=== PATIENT | male | born 1950 | race Caucasian/White ===

== ENCOUNTER 2017-07-03 08:02 | Inpatient (IN) | payer MEDICARE, OTHER ==
--- NOTE | 2017-07-03 08:37 | ED PDOC ---
Arrival/HPI - General Time Seen by Provider: 07/03/17 08:06 Historian: Patient - History of Present Illness Narrative History of Present Illness (Text): 07/03/17 08:30 A 66 year old male, whose past medical history includes CHF and liver transplant , brought into the emergency department by EMS from cruise ship complaining of shortness of breath. 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 Patient denies any fever, chills, nausea, vomiting, abdominal pain, chest pain or any other complaints. 07/03/17 11:43 Time/Duration: Prior to Arrival Symptom Course: Improving Quality: Other Context: Home Past Medical History - Provider Review Nursing Documentation Reviewed: Yes Family/Social History - Physician Review Nursing Documentation Reviewed: Yes Family/Social History: No Known Family HX Allergies/Home Meds Allergies/Adverse Reactions: Allergies No Known Allergies Allergy (Unverified 07/03/17 08:36) Home Medications: Home Meds Medication Instructions Recorded Confirmed Aspirin [Adult Low Dose Aspirin EC] 81 mg PO DAILY 07/03/17 07/03/17 Atorvastatin [Lipitor] 20 mg PO HS 07/03/17 07/03/17 Bisacodyl [Dulcolax] 5 mg PO DAILY 07/03/17 07/03/17 Carvedilol [Coreg] 25 mg PO BID 07/03/17 07/03/17 Cyanocobalamin [Vitamin B12 100 300 mg PO DAILY 07/03/17 07/03/17 mcg Tab] Furosemide [Lasix] 40 mg PO BID 07/03/17 07/03/17 Gabapentin [Neurontin] 300 mg PO HS 07/03/17 07/03/17 Insulin Detemir [Levemir] 18 units SC HS 07/03/17 07/03/17 Insulin Lispro [Humalog (Insulin 100 unit SQ TID 07/03/17 07/03/17 Lispro)] Lisinopril [Zestril] 10 mg PO DAILY 07/03/17 07/03/17 Mv-Min/Folic/Vit K/Lycop/Coq10 1 each PO DAILY 07/03/17 07/03/17 [Daily Multivitamin Capsule] Mv-Mn/Iron/Folic Acid/Herb 190 1,000 unit PO DAILY 07/03/17 07/03/17 [Vitamin D3 Complete Caplet] Pyridoxine HCl (Vitamin B6) 100 mg PO DAILY 07/03/17 07/03/17 [Vitamin B-6] Tacrolimus [Prograf] 1 mg PO BID 07/03/17 07/03/17 Tamsulosin [Flomax] 0.4 mg PO HS 07/03/17 07/03/17 Review of Systems - Physician Review All systems were reviewed & negative as marked: Yes - Review of Systems Constitutional: absent: Fevers, Night Sweats Respiratory: SOB Cardiovascular: absent: Chest Pain Gastrointestinal: absent: Abdominal Pain, Nausea, Vomiting Physical Exam Vital Signs Reviewed: Yes Vital Signs Temp Pulse Resp BP Pulse Ox 07/03/17 10:56 62 19 127/62 95 07/03/17 10:54 127/62 07/03/17 08:46 19 96 07/03/17 08:37 98.0 F 62 18 133/64 96 Temperature: Afebrile Blood Pressure: Normal Pulse: Regular Respiratory Rate: Normal Appearance: Positive for: Well-Appearing, Non-Toxic, Comfortable Pain Distress: None Mental Status: Positive for: Alert and Oriented X 3 - Systems Exam Head: Present: Atraumatic, Normocephalic Pupils: Present: PERRL Extroacular Muscles: Present: EOMI Conjunctiva: Present: Normal Mouth: Present: Moist Mucous Membranes Neck: Present: Normal Range of Motion Respiratory/Chest: Present: Decreased Breath Sounds (bilaterally at bases). No : Respiratory Distress, Accessory Muscle Use Cardiovascular: Present: Regular Rate and Rhythm, Normal S1, S2. No: Murmurs Abdomen: Present: Normal Bowel Sounds. No: Tenderness, Distention, Peritoneal Signs Back: Present: Normal Inspection Upper Extremity: Present: Normal Inspection. No: Cyanosis, Edema Lower Extremity: Present: Normal Inspection. No: Edema Neurological: Present: GCS=15, CN II-XII Intact, Speech Normal Skin: Present: Warm, Dry, Normal Color. No: Rashes Psychiatric: Present: Alert, Oriented x 3, Normal Insight, Normal Concentration Medical Decision Making ED Course and Treatment: 07/03/17 08:30 Impression: A 66 year old male with shortness of breath. No chest pain. Plan: -- Chest xray -- EKG -- Labs -- Urinalysis -- Reassess and disposition Progress Notes: EKG shows NSR at 63 BPM with non-specific ST/T wave changes, no prior EKG for comparison. Interpreted by me. Report Date : 07/03/2017 09:07:26 Procedure: Chest xray Dictator : Randall Hewitt MD IMPRESSION: Bibasilar opacity, left greater than right. Possible small left pleural effusion. Rule out pneumonia. - Lab Interpretations Lab Results: 07/03/17 08:50 07/03/17 08:50 Lab Results 07/03/17 09:01: POC Glucose (mg/dL) 94 07/03/17 08:50: Sodium 142, Potassium 4.7, Chloride 106, Carbon Dioxide 26, Anion Gap 15, BUN 51 H, Creatinine 1.5, Est GFR ( Amer) 56, Est GFR (Non- Af Amer) 47, Random Glucose 94, Calcium 9.6, Magnesium 1.9, Total Bilirubin 0.6 , AST 26, ALT 30, Alkaline Phosphatase 87, Lactate Dehydrogenase 530, Total Creatine Kinase 59, Troponin I 0.03, NT-Pro-B Natriuret Pep 59338 H, Total Protein 7.1, Albumin 4.0, Globulin 3.1, Albumin/Globulin Ratio 1.3 07/03/17 08:50: PT 11.0, INR 1.02, APTT 28.7 07/03/17 08:50: WBC 6.3, RBC 3.73, Hgb 10.5 L, Hct 32.4 L, MCV 86.9, MCH 28.2, MCHC 32.4, RDW 16.1 H, Plt Count 278, MPV 10.3, Gran % 60.2, Lymph % (Auto) 25.0 , [place] % (Auto) 9.3 H, Eos % (Auto) 4.6, Baso % (Auto) 0.9, Gran # 3.80, Lymph # 1.6, [place] # 0.6, Eos # 0.3, Baso # 0.06 I have reviewed the lab results: Yes - RAD Interpretation Radiology Orders: 07/03/17 08:26 CHEST PORTABLE [RAD] Stat - Medication Orders Current Medication Orders: Aspirin (Ecotrin) 81 mg PO DAILY CONSTANTINO Atorvastatin Calcium (Lipitor) 20 mg PO HS [facility] Carvedilol (Coreg) 25 mg PO BID [facility] Furosemide (Lasix) 40 mg IVP DAILY [facility] Gabapentin (Neurontin) 300 mg PO HS [facility] PRN Reason: Protocol Levofloxacin/Dextrose (Levaquin 750mg) 750 mg in 150 mls @ 100 mls/hr IVPB DAILY [facility] Insulin Detemir (Levemir) 18 unit SC HS [facility] Lisinopril (Zestril) 10 mg PO DAILY [facility] Non-Formulary Medication (Insulin Lispro [Humalog (Insulin Lispro)]) 100 unit SQ TID [facility] Non-Formulary Medication (Mv-Min/Folic/Vit K/Lycop/Coq10 [Daily Multivitamin Capsule]) 1 each PO DAILY [facility]INO Non-Formulary Medication (Mv-Mn/Iron/Folic Acid/Herb 190 [Vitamin D3 Complete Caplet]) 1,000 unit PO DAILY [facility] Pyridoxine HCl (Vitamin B6 50 Mg Tab) 100 mg PO DAILY [facility] Tacrolimus (Prograf Cap) 1 mg PO BID CONST[facility]INO Tamsulosin HCl (Flomax) 0.4 mg PO HS CONSTANTINO Discontinued Medications Furosemide (Lasix) 60 mg IVP STAT STA Stop: 07/03/17 09:20 Last Admin: 07/03/17 10:54 Dose: 60 mg MAR Blood Pressure Document 07/03/17 10:54 MR (Rec: 07/03/17 10:54 MR [id number]) Blood Pressure Blood Pressure (100/60-150/90) 127/62 IVP Administration Document 07/03/17 10:54 MR (Rec: 07/03/17 10:54 MR [id number]) Charges for Administration # of IVP Administrations 1 Levofloxacin/Dextrose (Levaquin 750mg) 750 mg in 150 mls @ 100 mls/hr IVPB STAT STA Stop: 07/03/17 10:41 Last Admin: 07/03/17 10:53 Dose: 100 mls/hr eMAR Start Stop Document 07/03/17 10:53 MR (Rec: 07/03/17 10:54 MR [id number]) Intravenous Solution Start Date 07/03/17 Start Time 10:53 End Date 07/03/17 End time 12:23 Total Infusion Time 90 - Scribe Statement The provider has reviewed the documentation as recorded by the Scribe Adelaida Nash Provider Scribe Attestation: All medical record entries made by the Scribe were at my direction and personally dictated by me. I have reviewed the chart and agree that the record accurately reflects my personal performance of the history, physical exam, medical decision making, and the department course for this patient. I have also personally directed, reviewed, and agree with the discharge instructions and disposition. Disposition/Present on Arrival - Present on Arrival Any Indicators Present on Arrival: No - Disposition Have Diagnosis and Disposition been Completed?: Yes Diagnosis: CHF (congestive heart failure) Disposition: HOSPITALIZED Disposition Time: 11:43 Condition: STABLE
[2017-07-03 08:40] VITALS: BMI 23.6
[2017-07-03 09:01] LABS: BASO # 0.06 K/mm3 (0.0-2.0); BASO % 0.9 % (0.0-3.0); EOS # 0.3 (0.0-0.7); EOS % 4.6 % (1.5-5.0); GRAN # 3.8 (1.4-6.5); GRAN % 60.2 % (50.0-68.0); HEMATOCRIT 32.4 % (42.0-52.0); LYMPH # 1.6 (1.2-3.4); MEAN CELL VOLUME 86.9 fl (80.0-105.0); MEAN CORPUSCULAR HEMOGLOBIN 28.2 pg (25.0-35.0); MEAN CORPUSCULAR HGB CONC 32.4 g/dl (31.0-37.0); MEAN PLATELET VOLUME 10.3 fl (7.0-11.0); MONO # 0.6 (0.1-0.6); MONO % 9.3 % (1.0-6.0); RED CELL DISTRIBUTION WIDTH 16.1 % (11.5-14.5); WHITE BLOOD COUNT 6.3 10^3/ul (4.5-11.0)
[2017-07-03 09:06] LABS: ALB/GLOB RATIO 1.3 (1.1-1.8); BILIRUBIN,TOTAL 0.6 mg/dL (0.2-1.3); CALCIUM 9.6 mg/dL (8.4-10.5); MAGNESIUM 1.9 mg/dL (1.7-2.2); POTASSIUM 4.7 mmol/L (3.6-5.0); TOTAL PROTEIN 7.1 g/dL (5.8-8.3)
--- NOTE | 2017-07-03 09:09 | RAD ---
HISTORY: sob COMPARISON: No prior. FINDINGS: LUNGS: Bibasilar ill-defined opacity, left greater than right. Possible pneumonia. PLEURA: Blunting of left costophrenic angle may reflect small pleural effusion. No evidence of right pleural effusion. No pneumothorax. CARDIOVASCULAR: No significant congestive change. Normal heart size. OSSEOUS STRUCTURES: No significant abnormalities. VISUALIZED UPPER ABDOMEN: Normal. OTHER FINDINGS: None. IMPRESSION: Bibasilar opacity, left greater than right. Possible small left pleural effusion. Rule out pneumonia.
[2017-07-03 09:10] LABS: INR 1.02 (0.93-1.08); PARTIAL THROMBOPLASTIN TIME 28.7 Seconds (23.7-30.8)
[2017-07-03] MEDS ORDERED: levoFLOXacin 750 mg in D5W 750 MG/150 ML BAG IVPB STA (09:12)
[2017-07-03 09:18] LABS: TROPONIN I 0.03 ng/mL
[2017-07-03 10:59] VITALS: O2SAT 95
--- NOTE | 2017-07-03 11:19 | CARD ---
APPROVED REPORT EKG Measurement Heart [id number] <Conclusion> Normal sinus rhythm Cannot rule out Old Ant.Wall Infarct.
[2017-07-03] MEDS ORDERED: Pneumococcal 23-Valent Vaccine IM ONE (13:01)
[2017-07-03] MEDS ORDERED: INSULIN LISPRO 100 UNIT SQ SCH (14:00)
--- NOTE | 2017-07-03 14:27 | CON ---
PULMONARY CONSULTATION DATE: 07/03/2017 REASON FOR CONSULTATION: Rule out pneumonia. REFERRING PHYSICIAN: Jose Wolff DO HISTORY OF PRESENT ILLNESS: History is obtained via extensive discussion with Dr. Maldonado (emergency room). I have also discussed the case with the patient and at length. This patient is a 66-year-old male, with past medical history significant for congestive heart failure, coronary artery disease, status post multiple cardiac stents, liver transplant, hypertension, who presents to [facility] - from the cruise ship- with a 2-day history of worsening shortness of breath at rest and dyspnea on exertion. There is no history of cough or sputum production. There is no history of chest pain, coughing up of blood, or chest pain - made worse with deep respirations. There is no history of temperatures, chills or infectious exposure. There is no history of night sweats, weight loss or appetite change prior to the above events. No history of leg or calf pains. No history of syncope or diaphoresis. No history of recent trauma. REVIEW OF SYSTEMS: No history of nausea, vomiting or diarrhea. No acute urinary symptoms. No new neurologic or musculoskeletal complaints. Rest of the review of systems is negative. ALLERGIES: NO KNOWN ALLERGIES. SOCIAL HISTORY: Positive for tobacco(stopped 20 years ago) and negative for alcohol. FAMILY HISTORY: No inheritable diseases or medications include Flomax, MEDS:include Prograf, vitamins, insulin, Levemir, Neurontin, Lasix, Coreg, Lipitor and aspirin. PHYSICAL EXAMINATION: GENERAL: The patient is not short of breath at rest. He is not using accessory muscles for breathing. VITALS: Temperature is 98.0, pulse 62, respirations 19, blood pressure 133/64. Oxygen saturation on nasal cannula is 96%. HEENT: Normocephalic and atraumatic. Positive JVD. CARDIOVASCULAR: Systolic ejection murmur at the lower left sternal border. Positive S3 gallop. LUNGS: Decreased breath sounds with crackles at both bases. No rhonchi. No wheezing. EXTREMITIES: The patient is status post left [id number] amputation. The right lower extremity shows mild edema. There is no cyanosis or clubbing in the right lower extremity. The right calf is nontender to palpation. GI: Abdomen is soft, nontender and nondistended. Bowel sounds are positive. SKIN: No acute rash. NEUROLOGIC: Limited at the present time. LABORATORY DATA: Chest x-ray was done and reviewed. There is moderate pulmonary edema noted. There is also a questionable small patchy infiltrate noted in the right lower lobe. CBC: White count 6.3, hemoglobin 10.5, hematocrit 32.4, platelets of 278. Complete metabolic profile: BUN 51, troponin 0.03. B-type nature peptide 10,400. Rest of the metabolic profiles within normal limits. IMPRESSION: 1. Acute congestive heart failure. 2. Coronary artery disease. 3. Rule out pneumonia - right lower lobe. 4. Mild anemia. 5. Possible COPD PLAN: Again, I did discuss the case with the patient and at length. I have also discussed the case with the emergency room physician at length. The patient presents to [facility] with a 2-day history of worsening shortness of breath at rest and dyspnea on exertion. There are no other pulmonary symptoms reported. I did review the chest x-ray as above. The chest x-ray is most consistent with congestive heart failure. There may also be a small underlying patchy infiltrate noted in the right lower lobe, but it is certainly not extensive. I have also reviewed the laboratory data. A significant rise in the B-type nature peptide is noted. On the cruise ship, the patient was started on Tridal and Lasix, with a significant reduction in his pulmonary symptoms. There is no history of temperatures. There is no leukocytosis. The patient was given a dose of Levaquin in the emergency room. A stat procalcitonin has also been ordered - to try and discern whether we are dealing with an underlying pneumonia or not. Cardiology evaluation with Dr. Bethea has also been ordered. Again, the patient improved significantly with treatment for his heart failure - while on the cruise ship. Additional pulmonary intervention will be based on the above results, as well as the clinical status of the patient. I will discuss the above with the attending physician. Thank you very much for this pulmonary consultation. Nilay Lazo MD JORGE
--- NOTE | 2017-07-03 20:19 | HP ---
HISTORY OF PRESENT ILLNESS: I was called down to the emergency room to see this young man. He came off the cruise ship. He had shortness of breath. He was given treatments on the cruise ship. He also got Lasix 60 IV in the ER. He is starting to breathe a little bit better. He has got a big medical history: CHF, liver transplant. He has a left BKA. He was very uncomfortable when he came in to the ER. He is doing better now after the diuresing. He is with his family. He will be put on telemetry. ALLERGIES: NO KNOWN DRUG ALLERGIES. MEDICATIONS: His medication list are many: Dulcolax, Lasix, B12, low-dose aspirin, Coreg, multivitamin, Flomax. He is a diabetic. He is on Lispro, Levemir. He is also on Lipitor, Neurontin, Prograf, vitamin B6 with vitamin D3 complex, lisinopril. FAMILY HISTORY: There is no known family history. REVIEW OF SYSTEMS: No apparent fevers or sweats. No changes in vision or hearing. No sore throat. No chest pain or palpitation. There was shortness of breath and coughing. No abdominal pain, nausea, vomiting. No pain. No numbness or tingling. PHYSICAL EXAMINATION: GENERAL: Presently, he is comfortable on the gurney in the ER. VITAL SIGNS: He has 98 temperature, 62 pulse, 18 respiratory rate, 133/64 blood pressure, 96% O2 saturation on oxygen. HEENT: His head is atraumatic and normocephalic. He is well-appearing comfortable at this time, status post Lasix given IV. Alert and oriented. Extraocular muscles intact. Throat is moist. NECK: Supple. No JVD. HEART: Regular rate. Normal S1 and S2. LUNGS: Decreased breath sounds bilaterally. Fair inspiration. No congestion. No rales, rhonchi, or wheezes. ABDOMEN: Soft and nontender. Positive bowel sounds. No guarding. No rebound. No CVA tenderness. EXTREMITIES: Have no edema. He has had a left BKA. NEUROLOGICAL: GCS is 15. Cranial nerves II through XII grossly intact. SKIN: Warm and dry. No apparent ulcers or rashes appreciated. LYMPH: Thyroid midline. No appreciable lymphadenopathy that I can palpate. LABORATORY DATA: He had a chest x-ray that says bibasilar opacity left greater than right, possible small left pleural effusion, rule out pneumonia. An EKG which says normal sinus rhythm, cannot rule out anterior infarct. IMPRESSION AND PLAN: He will have consults with Pulmonary and Cardio. He will be on Levaquin IV. He will be on his medications plus Lasix 40 IV daily. He will have physical therapy ordered, oxygen. Hopefully, he will improve. We will check his labs tomorrow. Jose Wolff DO
[2017-07-03 20:25] LABS: PH,URINE 6.5 (4.7-8.0); URINE BILIRUBIN NEGATIVE (NEGATIVE); URINE BLOOD TRACE-INTACT (NEGATIVE); URINE GLUCOSE (UA) NEGATIVE (NEGATIVE); URINE KETONE NEGATIVE (NEGATIVE); URINE LEUKOCYTE ESTERASE NEGATIVE Leu/uL (NEGATIVE); URINE PROTEIN 100 mg/dL (<30 mg/dL); URINE UROBILINOGEN 0.2 E.U./dL (<1 E.U./dL)
[2017-07-03 20:26] LABS: URINE COLOR YELLOW (YELLOW)
[2017-07-03 20:27] LABS: URINE APPEARANCE CLEAR (CLEAR)
[2017-07-03 20:35] LABS: URINE RBC 0 - 2 /hpf (0-2); URINE WBC NEGATIVE /hpf (0-6)
[2017-07-03] MEDS ORDERED: Insulin Detemir 100 units/ml Vial (Levemir) SC SCH (22:00)
--- NOTE | 2017-07-04 02:40 | CON ---
CARDIOLOGY CONSULTATION DATE: 07/03/2017 HISTORY OF PRESENT ILLNESS: The patient is a 66-year-old male who was on a cruise ship who developed substernal angina at rest followed by florid CHF. PAST MEDICAL HISTORY: The patient's past medical history includes history of diabetes mellitus, COPD, hypertension, history of PTCA and stent in the past, hypercholesterolemia as well as severe peripheral vascular disease, resulting in an amputation in the left lower extremity. Currently, his breathing is better. He denies chest pain at this time. SOCIAL HISTORY: He is a former heavy smoker. REVIEW OF SYSTEMS: A 14-point review of systems was reviewed in detail. No additional symptoms are noted. PHYSICAL EXAMINATION: VITAL SIGNS: Blood pressure is 127/62 and heart rate in the 60s. NECK: Negative JVD. LUNGS: Crackles at the bases. HEART: Reveal S1 and S2. EXTREMITIES: Status post amputation of the left lower extremity. DIAGNOSTIC DATA: EKG shows normal sinus rhythm with nonspecific ST-T changes. The ProBNP is greater than 10,000. The troponin is negative x1. BUN and creatinine is 51 and 1.5. Hemoglobin is 10.5 with a white count of 6.3. IMPRESSION: 1. Florid congestive heart failure. 2. Severe chronic obstructive pulmonary disease. 3. Coronary artery disease. 4. History of percutaneous transluminal coronary angioplasty and stent in the past. 5. Diabetes mellitus. 6. Unstable angina. 7. Peripheral vascular disease. 8. Status post amputation of the left lower extremity. 9. Prerenal azotemia. PLAN: Given these findings, we will add Plavix to his regimen. We will hold off his Lasix. Given these findings of recurrent angina and florid CHF, I have discussed with the patient and family about cardiac catheterization in the morning. They are agreeable. We will arrange for first thing in the morning. Randall Bethea MD
[2017-07-04 05:58] LABS: HEMATOCRIT 28.4 % (42.0-52.0); MEAN CELL VOLUME 87.4 fl (80.0-105.0); MEAN PLATELET VOLUME 10.1 fl (7.0-11.0); RED CELL DISTRIBUTION WIDTH 16.3 % (11.5-14.5); WHITE BLOOD COUNT 5.9 10^3/ul (4.5-11.0)
[2017-07-04 06:17] LABS: ALB/GLOB RATIO 1.2 (1.1-1.8); BILIRUBIN,TOTAL 0.6 mg/dL (0.2-1.3); POTASSIUM 4.2 mmol/L (3.6-5.0); TOTAL PROTEIN 6.1 g/dL (5.8-8.3)
[2017-07-04 06:32] LABS: CALCIUM 8.9 mg/dL (8.4-10.5)
[2017-07-04] MEDS ORDERED: Phenylephrine 10 mg/ml Inj ONE (06:56)
[2017-07-04] MEDS ORDERED: Lidocaine 2% Inj (20ml) ONE (06:56)
[2017-07-04] MEDS ORDERED: Iohexol 350mgl/ml 50 ML ONE (06:56)
[2017-07-04] MEDS ORDERED: Iodixanol 320 MG/ML 200 ML BOTTLE IV ONE (06:57)
[2017-07-04] MEDS ORDERED: Iodixanol 320 MG/ML 100 ML BOTTLE IV ONE (06:57)
[2017-07-04] MEDS ORDERED: Nitroglycerin 50mg in D5W 50 MG/250 ML BOTTLE IV ONE (06:57)
[2017-07-04] MEDS ORDERED: Midazolam 2 MG/2 ML VIAL ONE ×2 (07:04→07:49)
[2017-07-04] MEDS: Insulin Lispro (HUMAlog) HIGH Coverage SC SCH ×4 (07:38→21:33)
--- NOTE | 2017-07-04 07:39 | PN ---
SUBJECTIVE: The patient appears much more comfortable this morning. He is not short of breath at rest. PHYSICAL EXAMINATION: Vital Signs: Temperature is 98.0, pulse is 70, respirations 18-20, blood pressure 138/59. Oxygen saturation on room air is 95%. HEENT: Normocephalic, atraumatic. NECK: Positive JVD. CARDIOVASCULAR: Systolic ejection murmur at the lower left sternal border. Positive S3 gallop. LUNGS: Better breath sounds with less crackles at the bases. No rhonchi. No wheezing. EXTREMITIES: The patient is status post left [id number]-[id number] amputation. The right lower extremity shows less edema. There is no cyanosis or clubbing in the right lower extremity. The right calf is nontender to palpation. GASTROINTESTINAL: Abdomen is soft, nontender and nondistended. Bowel sounds are positive. SKIN: No acute rash. NEUROLOGIC: Limited at the present time. PERTINENT LABORATORY DATA: CBC: White count 5.9, hemoglobin 9.1, hematocrit 28.4, platelets of 249. Complete metabolic profile: BUN 51, creatinine 1.6. Rest of the metabolic profile is within normal limits. Procalcitonin was done yesterday and is negative-0.11. IMPRESSION: 1. Acute congestive heart failure. 2. Coronary artery disease. 3. Rule out pneumonia-right lower lobe-less likely. 4. Mild anemia. 5. Possible chronic obstructive pulmonary disease. PLAN: The patient appears much more comfortable this morning. He is not short of breath at rest. He states he is feeling much better overall. On physical exam, there is no significant bronchospasm noted. In addition, the oxygen saturation on room air is now 95%. I would continue with the treatment for congestive heart failure as per Cardiology. Input by Dr. Bethea is noted. The patient is for probable cardiac catheterization later today. The patient remains on antibiotic therapy. There are no temperatures noted. There is no leukocytosis. Given the negative procalcitonin, we could certainly shorten the course of antibiotic treatment. I did discuss the patient's smoking history again with him at length this morning. He did smoke for a number of years, but has not smoked for 20 years. When stable, I would like to obtain a pulmonary function test. The patient has never been on any pulmonary medications before. Clinical status of this patient is significantly improved-compared to yesterday. I will discuss the above with Dr. Wolff. Nilay Lazo MD MTDHumphrey
[2017-07-04] MEDS ORDERED: Sodium Chloride 0.9% 1,000 ML IV SCH (09:15)
[2017-07-04] MEDS ORDERED: IRON PO SCH (10:00)
[2017-07-04] MEDS ORDERED: [UNRECOGNIZED DRUG - OTHER] PO SCH (10:00)
[2017-07-04] MEDS ORDERED: VIT K PO SCH (10:00)
[2017-07-04] MEDS ORDERED: [UNRECOGNIZED DRUG - OTHER] PO SCH (10:00)
[2017-07-04] MEDS ORDERED: FOLIC ACID PO SCH (10:00)
[2017-07-04] MEDS ORDERED: levoFLOXacin 750 mg in D5W 750 MG/150 ML BAG IVPB SCH (10:00)
[2017-07-04] MEDS ORDERED: LYCOP PO SCH (10:00)
[2017-07-04] MEDS ORDERED: MV MIN PO SCH (10:00)
[2017-07-04] MEDS ORDERED: FOLIC PO SCH (10:00)
[2017-07-04] MEDS ORDERED: COQ10 PO SCH (10:00)
[2017-07-04] MEDS ORDERED: HERB PO SCH (10:00)
[2017-07-04] MEDS ORDERED: MV MN PO SCH (10:00)
--- NOTE | 2017-07-04 12:48 | CARD ---
APPROVED REPORT EKG Measurement Heart [id number] <Conclusion> Normal sinus rhythm Anterior infarct, age Old. Abnormal ECG
--- NOTE | 2017-07-04 13:16 | PQF CHF ---
This form is a permanent part of the medical record Dr. Wolff, Please provide specificity about type and severity of CHF present in this patient. Clarification of your documentation is requested to better reflect the severity of illness and intensity of treatment of your patient. Indicators present [] Diagnosis of CHF and/or history of CHF [] BNP > 200 [] Imaging Finding of Pulmonary Edema /Pleural Effusions [] Fluid/Volume Overload [] Pitting edema [] Ejection Fraction < 40% (Indicative of Systolic Heart Failure) [] Ejection Fraction > 40% (Indicative of Diastolic Heart Failure) [] Dyspnea / Orthopenea / Paroxysmal Nocturnal Dyspnea [] Other: Location in the medical record that reflects the above clinical findings: [] Treatment Provided: [] PHYSICIAN'S RESPONSE PER CARDIOLOGY CONSULT Based on your medical judgment of the clinical indicators outlined above, are you treating this patient for a known or suspected: [] Acute CHF [] Systolic [] Diastolic [] Combined [] Chronic CHF [] Systolic [] Diastolic [] Combined [] Acute on Chronic CHF []Systolic [] Diastolic [] Combined [] CHF due hypertension [] Acute systolic []Chronic systolic [] Acute/ chronic systolic [] Other, please indicate: [] [] If Unable to Determine, please check the box, sign and date. Present On Admission (POA) Indicator: [] Present at the time of admission [] Not present at the time of admission [] Clinically Undetermined In responding to this query, please exercise your independent professional judgment. The fact that a question is asked does not imply that any particular answer is desired or expected. Thank you for your clarification on this documentation. If you have any questions please call:[ ] * Thank you, [ ]Irene Martinez [facility] #[id number] log loader helper JORGE
--- NOTE | 2017-07-04 16:53 | CARDCATH ---
CARDIAC CATHETERIZATION AND PTCA PROCEDURE DATE: 07/04/2017 HISTORY: The patient is a 66-year-old male who presents with unstable angina and CHF [place] cruise ship. His past medical history includes a PTCA and stent remotely as well as history of severe peripheral vascular disease. He suffers from diabetes mellitus and he is a former heavy smoker. He suffers from COPD. Because of this, a cardiac catheterization was recommended. PROCEDURE: Left heart catheterization with coronary , left ventriculogram, supra-aortic valvular injection as well as percutaneous transluminal coronary angioplasty and stent of an left anterior descending. The right femoral artery was cannulated with a 6-Finnish sheath. There were no complications. . FINDINGS ON CATHETERIZATION: Revealed a left ventricle that was mildly hypokinetic. Estimated ejection fraction between 40% and 45%. There was no mitral regurgitation. Supra-aortic valvular injection revealed no aortic insufficiency. His coronary anatomy revealed a right dominant circulation. The RCA revealed diffuse atherosclerosis throughout its course with multiple 50% to 60% lesions in the proximal and midportion. The distal portion of the RCA was occluded, which appears chronic. The left main artery was a narrow vessel, but was free of significant disease. The LAD and diagonal vessels revealed diffuse atherosclerosis with multiple 50% lesions throughout its course. In the midportion of the LAD at the previously placed stent site, there is a 99% stenosis noted. The diagonal vessels revealed diffuse atherosclerosis. The circumflex artery and obtuse marginal branches revealed diffuse atherosclerosis with multiple 40% to 50% lesions throughout its course. The patient was started on intravenous Angiomax. On the fluoroscopic guide, the guiding catheter was placed in the ostium of the left main artery. An 0.014 ATW wire was used to cross the critical lesion. A 2.0 balloon was used to dilate the long segment of the subtotal occlusion in the mid LAD. Two 2.25 x 20 mm drug-eluting stents were placed and deployed in the midportion of the LAD at 12 to 14 atmospheres of pressure. After balloon deflation and removal, repeat coronary revealed an excellent result with no residual stenosis and SHERIN-III flow. Angio-Seal was used to close the femoral artery site. The patient tolerated the procedure well. In summary, the procedure was successful PTCA and stent of a subtotally occluded LAD that was a long lesion in a diffusely diseased artery. Drug-eluting stents were used. Cardiac catheterization revealed mild LV hypokinesis with an EF of 40%. His coronary tree revealed diffuse atherosclerosis with multiple 50% lesions throughout all vessels as well as a chronically occluded distal RCA. Given these findings, the patient will need to remain on aspirin indefinitely and Plavix for at least a year. If the patient is stable, the patient can be discharged in the morning and referred back to his diesel motor mechanic down in [facility]. I have discussed this with his diesel motor mechanic and he is aware of the patient's clinical course. Randall Bethea MD
[2017-07-04] MEDS ORDERED: [UNRECOGNIZED DRUG - OTHER] PO SCH (20:17)
[2017-07-05 08:39] LABS: BASO # 0.03 K/mm3 (0.0-2.0); BASO % 0.4 % (0.0-3.0); EOS # 0.3 (0.0-0.7); EOS % 3.8 % (1.5-5.0); GRAN # 4.93 (1.4-6.5); HEMATOCRIT 29.3 % (42.0-52.0); LYMPH # 1.2 (1.2-3.4); MEAN CELL VOLUME 87.5 fl (80.0-105.0); MEAN CORPUSCULAR HEMOGLOBIN 28.1 pg (25.0-35.0); MEAN CORPUSCULAR HGB CONC 32.1 g/dl (31.0-37.0); MEAN PLATELET VOLUME 9.8 fl (7.0-11.0); MONO # 0.6 (0.1-0.6); MONO % 8.8 % (1.0-6.0); RED CELL DISTRIBUTION WIDTH 15.9 % (11.5-14.5); WHITE BLOOD COUNT 7.1 10^3/ul (4.5-11.0)
[2017-07-05] MEDS: Insulin Lispro (HUMAlog) HIGH Coverage SC SCH ×2 (08:39→13:17)
[2017-07-05 08:48] LABS: ALB/GLOB RATIO 1.2 (1.1-1.8); BILIRUBIN,TOTAL 0.6 mg/dL (0.2-1.3); CALCIUM 9.4 mg/dL (8.4-10.5); POTASSIUM 4.5 mmol/L (3.6-5.0); TOTAL PROTEIN 6.4 g/dL (5.8-8.3)
--- NOTE | 2017-07-05 10:37 | DS ---
SUBJECTIVE: He is resting comfortably in bed. He ate all his breakfast. He has no chest pain, no shortness of breath. He is status post cardiac cath and stent placement. PHYSICAL EXAMINATION: VITAL SIGNS: He has a 98.9 temp, 72 pulse, 150/69 blood pressure, and 18 respiratory rate. HEENT: Head is atraumatic, normocephalic. Throat is moist. NECK: Supple. HEART: Regular rate. LUNGS: Clear to auscultation. ABDOMEN: Soft. EXTREMITIES: No edema. Left BKA. LABORATORY DATA: He has a 7.1 white count, 9.4 hemoglobin, 29.3 hematocrit with a 243 platelets. He has a 141 sodium, potassium is 4.5, BUN is 43, creatinine is 1.6 which is better. He has a 43 GFR. He has got a 141 sugar, calcium is 9.4, total bili is 0.6, AST is 19, ALT is 37, alk phos 79, total protein is 6.4. ASSESSMENT AND PLAN: He is being seen by cardiology and pulmonology. Overall, he did very well here. He is going to go home on his vitamins, Coreg, Ecotrin, Flomax, Levemir, Lipitor, multivitamin, Neurontin, Plavix, Prograf, Tylenol, vitamin B6 and Zestril. He will follow up with his primary care doctor his coronary artery disease, congestive heart failure and the stent. Jose Wolff DO
--- NOTE | 2017-07-05 13:18 | PN ---
REASON FOR DICTATION: Covering Dr. Randall Bethea. REASON FOR CONSULTATION: Coronary artery disease, status post PTCA, status post pulmonary edema. SUBJECTIVE: The patient denies any chest pain, shortness of breath, any palpitation. OBJECTIVE: GENERAL: Sitting in the chair, in the process of being discharged. VITAL SIGNS: Temperature afebrile, heart rate 75, blood pressure 150/60. HEENT: PERRLA, intact. NECK: Supple. No carotid bruit or thyromegaly. CHEST: Clear to auscultation. HEART: S1 and S2 regular. ABDOMEN: Soft. EXTREMITIES: Clubbing and cyanosis negative. LABORATORY DATA: WBC 7.9, hemoglobin 9.4, hematocrit of 29.3, and platelet count 243. Sodium 141, potassium 4.5, chloride 105, carbon dioxide 23, anion gap of 15, BUN of 43, and creatinine of 1.6. IMPRESSION: A 66-year-old male with past medical history significant for coronary artery disease, status post percutaneous transluminal coronary angioplasty of left anterior descending, by Dr. Bethea; diabetes; hypertension; hyperlipidemia; unstable angina; congestive heart failure; history of amputation. RECOMMENDATIONS: Continue aspirin and Plavix. Okay to discharge, baseline patient's renal insufficiency, monitor electrolytes as outpatient. We will follow with you. I discussed in length with the patient about the mandatory to continue aspirin and Plavix. We will follow with you and upon discharge, the patient will be followed with Dr. Bethea as outpatient. are made to the patient to followup visit with Dr. Bethea. Yolande Gutierrez MD
[2017-07-05 13:53] VITALS: BP 125/59; PULSE 64; RESP 20; TEMP 99
--- NOTE | 2017-07-05 14:21 | CARD ---
APPROVED REPORT EKG Measurement Heart [id number] VT [id number] [id number] <Conclusion> Normal sinus rhythm Cannot rule out Inferior infarct, age undetermined Anterior infarct, age undetermined Abnormal ECG
--- NOTE | 2017-07-07 09:53 | PN ---
DATE: 07/04/2017 SUBJECTIVE: I saw him resting comfortably in bed. He is status post coronary cath with Dr. Randall Bethea, the sprayer leather. He had a stent placed. He is comfortable, lying flat in bed, alert and talking. MEDICATIONS: He is on Coreg, Ecotrin, Flomax, insulin, Lasix, Levaquin, Levemir, Lipitor, Motrin, multivitamins, Neurontin, Plavix, Prograf, IV fluids, vitamin B6, and Zestril. PHYSICAL EXAMINATION: GENERAL: Alert and talking. VITAL SIGNS: He has temperature of 98, pulse of 70, blood pressure of 134/64, respiratory rate of 20, and 95% O2 saturation on room air. HEENT: Head is atraumatic and normocephalic. Throat is moist. NECK: Supple. HEART: Regular rate. LUNGS: Decreased breath sounds. Clear to auscultation. Poor inspiration, but clear. ABDOMEN: Soft, nontender, and positive bowel sounds. No guarding. No rebound. No CVA tenderness. EXTREMITIES: No edema. He does have left BKA. ASSESSMENT AND PLAN: He has been treated for congestive heart failure, coronary artery disease with stent placement now, pneumonia, and anemia. Hopefully, tomorrow if things go well, we might thought that discharge him tomorrow, discussed that with Pulmonary and Cardiology. He will have to lie flat for 6 hours will discharge him tomorrow if things go well. Continue with aggressive treatment and care as per Cardiology and Pulmonary. We will check his labs tomorrow. Jose Wolff DO MTD[facility]
--- NOTE | 2017-07-07 11:40 | PQF CHF ---
07/07/17 Dr. Wolff, You signed the query form provided by the [facility] nurse. However, I do not see an answer to the question. "Acute" CHF is documented. Please provide type of CHF, as listed below. Thank you. Clarification of your documentation is requested to better reflect the severity of illness and intensity of treatment of your patient. Indicators present [] Diagnosis of CHF and/or history of CHF [] BNP > 200 [] Imaging Finding of Pulmonary Edema /Pleural Effusions [] Fluid/Volume Overload [] Pitting edema [] Ejection Fraction < 40% (Indicative of Systolic Heart Failure) [] Ejection Fraction > 40% (Indicative of Diastolic Heart Failure) [] Dyspnea / Orthopenea / Paroxysmal Nocturnal Dyspnea [] Other: Location in the medical record that reflects the above clinical findings: [] Treatment Provided: [] PHYSICIAN'S RESPONSE PER DR DORAN STAGE ELECTRICIAN HELPER Based on your medical judgment of the clinical indicators outlined above, are you treating this patient for a known or suspected: [] Acute CHF [] Systolic [] Diastolic [] Combined [] Chronic CHF [] Systolic [] Diastolic [] Combined [] Acute on Chronic CHF []Systolic [] Diastolic [] Combined [] CHF due hypertension [] Acute systolic []Chronic systolic [] Acute/ chronic systolic [] Other, please indicate: [] [] If Unable to Determine, please check the box, sign and date. Present On Admission (POA) Indicator: [] Present at the time of admission [] Not present at the time of admission [] Clinically Undetermined In responding to this query, please exercise your independent professional judgment. The fact that a question is asked does not imply that any particular answer is desired or expected. Thank you for your clarification on this documentation. If you have any questions please call:[ ] * Thank you, [ ] medical laboratory technologist JORGE
--- NOTE | 2017-07-07 11:52 | PQF PNEUMO ---
07/07/17 Dr. Wolff, Pneumonia is documented as "rule out" and "possible" on H&P, consult of 07/03, and progress of 07/04. Please document whether pneumoni was ruled in, ruled out , undetermined, other. Thank you. Clarification of your documentation is requested to better reflect the severity of illness and intensity of treatment of your patient. Indicators present [] Documented diagnosis of pneumonia [] X-ray findings: [] Positive Sputum cultures [] Cough w/ fever [] Abnormal lungs sounds [] Poor gag reflex [] Speech consults/swallow evaluation [] Vent dependence [] Other: [] Location in the medical record that reflects the above clinical findings: [] Treatment Provided: [] PHYSICIAN'S RESPONSE PER DR LO UNDERTAKER HELPER Based on your medical judgment of the clinical indicators outlined above, are you treating this patient for a known or suspected: [] Aspiration pneumonia [] Community acquired pneumonia [] Ventilator associated pneumonia [] Viral pneumonia [] Bacterial pneumonia Please specify organism: [] [] Other, please indicate [] If Unable to Determine, please check the box, sign and date. Present On Admission (POA) Indicator: [] Present at the time of admission [] Not present at the time of admission [] Clinically Undetermined In responding to this query, please exercise your independent professional judgment. The fact that a question is asked does not imply that any particular answer is desired or expected. Thank you for your clarification on this documentation. If you have any questions please call:[ ] * Thank you, [ ] print developer automatic JORGE
--- NOTE | 2017-07-08 08:51 | PQF CHF ---
07/08/17 Dr. [place] Wolff requests that you provide type of CHF for this patient, as listed below. Thank you. Clarification of your documentation is requested to better reflect the severity of illness and intensity of treatment of your patient. Indicators present [] Diagnosis of CHF and/or history of CHF [] BNP > 200 [] Imaging Finding of Pulmonary Edema /Pleural Effusions [] Fluid/Volume Overload [] Pitting edema [] Ejection Fraction < 40% (Indicative of Systolic Heart Failure) [] Ejection Fraction > 40% (Indicative of Diastolic Heart Failure) [] Dyspnea / Orthopenea / Paroxysmal Nocturnal Dyspnea [] Other: Location in the medical record that reflects the above clinical findings: [] Treatment Provided: [] PHYSICIAN'S RESPONSE Based on your medical judgment of the clinical indicators outlined above, are you treating this patient for a known or suspected: [] Acute CHF [] Systolic [] Diastolic [] Combined [] Chronic CHF [] Systolic [] Diastolic [] Combined [] Acute on Chronic CHF []Systolic [] Diastolic [] Combined [] CHF due hypertension [] Acute systolic []Chronic systolic [] Acute/ chronic systolic [] Other, please indicate: [] [] If Unable to Determine, please check the box, sign and date. Present On Admission (POA) Indicator: [] Present at the time of admission [] Not present at the time of admission [] Clinically Undetermined In responding to this query, please exercise your independent professional judgment. The fact that a question is asked does not imply that any particular answer is desired or expected. Thank you for your clarification on this documentation. If you have any questions please call:[ ] * Thank you, [ ] nuclear design engineer JORGE
--- NOTE | 2017-07-08 08:55 | PQF PNEUMO ---
07/08/17 Dr. Lazo, Dr. Wolff requests that you answer the following for this patient: Pneumonia is documented as "rule out" and "possible" on H&P and consult of and progress of 07/04. Was pneumonia ruled in, ruled out, undetermined ? Thank you. Clarification of your documentation is requested to better reflect the severity of illness and intensity of treatment of your patient. Indicators present [] Documented diagnosis of pneumonia [x] X-ray findings: [] Positive Sputum cultures [] Cough w/ fever [] Abnormal lungs sounds [] Poor gag reflex [] Speech consults/swallow evaluation [] Vent dependence [] Other: [] Location in the medical record that reflects the above clinical findings: [] Treatment Provided: [] PHYSICIAN'S RESPONSE Based on your medical judgment of the clinical indicators outlined above, are you treating this patient for a known or suspected: [] Aspiration pneumonia [x] Community acquired pneumonia [] Ventilator associated pneumonia [] Viral pneumonia [] Bacterial pneumonia Please specify organism: [] [] Other, please indicate [] If Unable to Determine, please check the box, sign and date. Present On Admission (POA) Indicator: [x] Present at the time of admission [] Not present at the time of admission [] Clinically Undetermined In responding to this query, please exercise your independent professional judgment. The fact that a question is asked does not imply that any particular answer is desired or expected. Thank you for your clarification on this documentation. If you have any questions please call:[ ] * Thank you, [ ] equal employment opportunity officer JORGE
--- NOTE | 2017-07-09 09:11 | PQF CHF ---
07/09/17 Dr. Bethea, You signed the last query form on this but I do not see your answer. Per Dr. Wolff, please provide type of CHF. Thank you. Clarification of your documentation is requested to better reflect the severity of illness and intensity of treatment of your patient. Indicators present [] Diagnosis of CHF and/or history of CHF [] BNP > 200 [] Imaging Finding of Pulmonary Edema /Pleural Effusions [] Fluid/Volume Overload [] Pitting edema [] Ejection Fraction < 40% (Indicative of Systolic Heart Failure) [] Ejection Fraction > 40% (Indicative of Diastolic Heart Failure) [] Dyspnea / Orthopenea / Paroxysmal Nocturnal Dyspnea [] Other: Location in the medical record that reflects the above clinical findings: [] Treatment Provided: [] PHYSICIAN'S RESPONSE Based on your medical judgment of the clinical indicators outlined above, are you treating this patient for a known or suspected: [] Acute CHF [] Systolic [] Diastolic [] Combined [] Chronic CHF [] Systolic [] Diastolic [] Combined [] Acute on Chronic CHF []Systolic [] Diastolic [] Combined [] CHF due hypertension [] Acute systolic []Chronic systolic [] Acute/ chronic systolic [] Other, please indicate: [] [] If Unable to Determine, please check the box, sign and date. Present On Admission (POA) Indicator: [] Present at the time of admission [] Not present at the time of admission [] Clinically Undetermined In responding to this query, please exercise your independent professional judgment. The fact that a question is asked does not imply that any particular answer is desired or expected. Thank you for your clarification on this documentation. If you have any questions please call:[ ] * Thank you, [ ] stationary equipment mechanic JORGE
--- NOTE | 2017-07-10 08:48 | PQF CHF ---
07/10/17 Dr. Bethea, Per attending physician, please provide type of CHF. If unknown, please state as such. Thank you. Clarification of your documentation is requested to better reflect the severity of illness and intensity of treatment of your patient. Indicators present [] Diagnosis of CHF and/or history of CHF [] BNP > 200 [] Imaging Finding of Pulmonary Edema /Pleural Effusions [] Fluid/Volume Overload [] Pitting edema [] Ejection Fraction < 40% (Indicative of Systolic Heart Failure) [] Ejection Fraction > 40% (Indicative of Diastolic Heart Failure) [] Dyspnea / Orthopenea / Paroxysmal Nocturnal Dyspnea [] Other: Location in the medical record that reflects the above clinical findings: [] Treatment Provided: [] PHYSICIAN'S RESPONSE Based on your medical judgment of the clinical indicators outlined above, are you treating this patient for a known or suspected: [] Acute CHF [] Systolic [] Diastolic [] Combined [] Chronic CHF [] Systolic [] Diastolic [] Combined [] Acute on Chronic CHF []Systolic [] Diastolic [] Combined [] CHF due hypertension [] Acute systolic []Chronic systolic [] Acute/ chronic systolic [] Other, please indicate: [] [] If Unable to Determine, please check the box, sign and date. Present On Admission (POA) Indicator: [] Present at the time of admission [] Not present at the time of admission [] Clinically Undetermined In responding to this query, please exercise your independent professional judgment. The fact that a question is asked does not imply that any particular answer is desired or expected. Thank you for your clarification on this documentation. If you have any questions please call:[ ] * Thank you, [ ] cable tv installer JORGE
== END 2017-07-05 16:15 | disposition home or self-care (01) | DRG 246 ==
LOC: ED 08:02 → ERH 09:29 → 2RNO 11:35 → 2RSO 07-04 09:02
PROVIDERS: ADMIT Family Medicine; ATTEND Family Medicine
PROC: 027034Z Dilation of Coronary Artery, One Artery with Drug-eluting Intraluminal Device, Percutaneous Approach (ICD-10-PCS; principal; 2017-07-04)
PROC: 4A023N7 Measurement of Cardiac Sampling and Pressure, Left Heart, Percutaneous Approach (ICD-10-PCS; 2017-07-04)
PROC: B2111ZZ Fluoroscopy of Multiple Coronary Arteries using Low Osmolar Contrast (ICD-10-PCS; 2017-07-04)
PROC: B2151ZZ Fluoroscopy of Left Heart using Low Osmolar Contrast (ICD-10-PCS; 2017-07-04)
DX: I11.0 Hypertensive heart disease with heart failure (principal); J18.9 Pneumonia, unspecified organism; Z94.4 Liver transplant status; E11.51 Type 2 diabetes mellitus with diabetic peripheral angiopathy without gangrene; J44.0 Chronic obstructive pulmonary disease with (acute) lower respiratory infection; I25.82 Chronic total occlusion of coronary artery; I50.9 Heart failure, unspecified; D64.9 Anemia, unspecified; E78.00 Pure hypercholesterolemia, unspecified; E78.5 Hyperlipidemia, unspecified; I25.110 Atherosclerotic heart disease of native coronary artery with unstable angina pectoris; Z79.4 Long term (current) use of insulin; Z79.82 Long term (current) use of aspirin; Z79.899 Other long term (current) drug therapy; Z87.891 Personal history of nicotine dependence; Z89.512 Acquired absence of left leg below knee; R40.2412 Glasgow coma scale score 13-15, at arrival to emergency department